=== PATIENT | female | born 1965 | race Caucasian/White ===

== ENCOUNTER 2021-11-07 09:05 | Outpatient (CLI) | payer BC, SELFPAY ==
--- NOTE | ~2021-11-07 | XR_ITS ---
XR thoracic spine 2V DATE: 11/07/2021 09:45 INDICATION: Chronic thoracic back pain TECHNIQUE: AP, lateral, swimmer views COMPARISON: 06/11/2013 MR thoracic spine FINDINGS: Status post anterior fusion at C4-5, C5-C6 and C6-7. Diffuse osteopenia. There is mild degenerative spurring of the thoracic spine. No fracture or dislocation or bone destruction or paraspinal soft tissue thickening is detected. IMPRESSION: Osteopenia Mild thoracic spine degenerative spurring Anterior cervical spine fusion from C4 through C7 Reviewed, dictated and finalized at location A. [employer]
--- NOTE | ~2021-11-07 | XR_ITS ---
XR lumbar spine 2-3V DATE: 11/07/2021 09:45 INDICATION: Lumbar back pain TECHNIQUE: AP, lateral, coned lateral lumbosacral views COMPARISON: None FINDINGS: Cage devices are noted at L4-5. Diffuse osteopenia. No fracture or dislocation or bone destruction is evident. The included lower thoracic and lumbar ped icles are intact. There is mild to moderate degenerative disc disease at L1-2 through L3-4. The L5-S1 interspace is wel l preserved. The sacroiliac joints are not well included in this examination. IMPRESSION: Status post L4-5 anterior fusion Mild to moderate degenerative disc disease Osteopenia Reviewed, dictated and finalized at location A. LOADER
== END 2021-11-07 09:06 ==
PROVIDERS: PCP Family Medicine; Visit Provider Family Medicine
DX: M54.50 Low back pain, unspecified (principal); M54.6 Pain in thoracic spine; G89.29 Other chronic pain; M85.88 Other specified disorders of bone density and structure, other site; M77.8 Other enthesopathies, not elsewhere classified; Z98.1 Arthrodesis status; M51.36 Other intervertebral disc degeneration, lumbar region
CPT/HCPCS: 72070; 72100